=== PATIENT | female | born 2005 | race Hispanic/Latino ===

== ENCOUNTER 2024-04-07 23:50 | Emergency (ER) | payer OTHER ==
[2024-04-08 00:34] LABS: Bilirubin Neg (Negative); Blood, Urine Negative (Negative); Clarity Clear (Clear); Glucose, Urine (Dipstick) Normal (Negative); Ketone, Urine Negative (Negative); Leukocyte 100 (Negative); Nitrite Negative (Negative); Protein, Urine (Dipstick) Negative (Neg-Trace); Specific Gravity, Urine 1.015 (1.005-1.030); Urobilinogen Normal mg/dL (Less than 2); pH, Urine 6.5 (5.0-9.0)
[2024-04-08 00:37] LABS: CAUTI Indications for Culture Pelvic or flank pain
[2024-04-08 00:38] LABS: Pregnancy Test - Urine (BHCG) Negative (Negative); Pregu Control Background? CLEAR/WHITE (CLR/WHITE); Pregu Control Bar Appear? YES (CONTROL BAR); Specific Gravity 1.015 (1.002-1.036)
[2024-04-08] MEDS ORDERED: Dicyclomine 20 MG/2 ML VIAL ONE (00:43)
[2024-04-08 00:47] LABS: Bacteria/HPF Rare-Few HPF (None Seen); RBC/HPF 0-3 HPF (0-3)
[2024-04-08 00:48] LABS: Urine Culture Reflex No No
[2024-04-08] MEDS ORDERED: Lidocaine 2% Viscous 10 mL, Alum & Magn 30 mL SSW SCH (01:00)
== END 2024-04-08 01:11 | disposition home or self-care (01) ==
LOC: CSHERS 23:50
DX: K29.70 Gastritis, unspecified, without bleeding (principal)
CPT/HCPCS: 81001; 81025; 96372; 99284